=== PATIENT | female | born 1965 | race Caucasian/White ===

== ENCOUNTER 2020-11-17 21:14 | Emergency (ER) | payer BC ==
[2020-11-17] MEDS ORDERED: Boostrix 0.5 ML (Tdap) VIAL ONE (22:16)
[2020-11-17] MEDS ORDERED: Lidocaine 1% (PF) 30 ML VIAL ONE (22:16)
[2020-11-17] MEDS ORDERED: Bacitracin 1 PK ONE (23:08)
== END 2020-11-17 23:17 | disposition home or self-care (01) ==
LOC: ERS 21:14
DX: S61.211A Laceration without foreign body of left index finger without damage to nail, initial encounter (principal); I10 Essential (primary) hypertension; E11.9 Type 2 diabetes mellitus without complications; W26.0XXA Contact with knife, initial encounter; Y93.E9 Activity, other interior property and clothing maintenance; Z23 Encounter for immunization
CPT/HCPCS: 12001; 90471; 90715; J2001